=== PATIENT | male | born 1970 | race Caucasian/White ===

== ENCOUNTER 2017-03-30 10:22 | Inpatient (IN) | payer OTHER ==
[~2017-03-30] VITALS: Ht 170.2 cm; Wt 68.5 kg
[~2017-03-30 10:22] MED LIST: AMITRIPTYLINE H25 MG PO; AUGMENTIN875 MG PO; BENTYL10 MG PO; LORTAB 5-325 M1 EACH PO; NAPROSYN500 MG PO; NEXIUM20 MG PO; NOHOMEMEDS; PERCOCET 5/31 TABLET PO; PRILOSEC40 MG PO; TYLENOL325 M1 PO; ZOFRAN4 MG PO
[2017-03-30 11:02] LABS: EOSINOPHIL (%) 0.1 % (0-5); HEMATOCRIT 48.2 % (38.0-50.0); IMMATURE GRANULOCYTE (%) 0.5 % (0.0-0.7); IMMATURE GRANULOCYTE COUNT 0.1 K/uL; INSTRUMENT ABS NEUTROPHIL CT 14.7 K/uL; LYMPHOCYTE COUNT 3.1 K/uL (1.0-2.8); MCH 30.4 PG (29.0-34.0); MCHC 34.2 G/DL (30.0-36.0); MCV 88.9 FL (86-99); MEAN PLAT.VOLUME 10.5 uM^3 (9.0-12.4); MONOCYTE (%) 5.1 % (3-12); NEUTROPHIL (%) 77.7 % (45-76); NEUTROPHIL COUNT 14.7 K/uL (1.8-6.4); PLATELET COUNT 174 K/uL (156-360); RBC DIS.WIDTH-CV 13.1 % (11.8-14.6); RBC DIS.WIDTH-SD 42.9 % (39-53); RED BLOOD COUNT 5.42 M/uL (4.00-5.50); WHITE BLOOD COUNT 18.9 K/uL (4.1-10.2)
[2017-03-30 11:06] LABS: INTER. NORMALIZED RATIO 1.2; PROTHROMBIN TIME 13.5 SEC (10.2-12.9)
[2017-03-30 11:15] LABS: SERUM ETHYL ALCOHOL < 10 mg/dL
[2017-03-30 11:19] LABS: CREATINE KINASE 101 IU/L (1-294); SALICYLATE < 5.0 MG/DL (15-30); TOTAL CK 101 IU/L (1-294)
[2017-03-30 11:24] LABS: TROP-I INTERPRETATION NEGATIVE; TROPONIN-I < 0.01 ng/mL (0.0-0.30)
[2017-03-30 11:26] LABS: CK-MB 1.2 ng/mL (0.0-4.9)
[2017-03-30 12:06] LABS: CHLORIDE 108 mEq/L (99-109); POTASSIUM 3.9 mEq/L (3.7-5.4); SODIUM 142 mEq/L (136-147)
[2017-03-30 12:08] LABS: GLUCOSE 107 mg/dL (70-99)
[2017-03-30 12:09] LABS: ANION GAP 13 MEQ/L (2-14)
[2017-03-30 12:10] LABS: TOTAL BILIRUBIN 0.8 mg/dL (0.0-1.0)
[2017-03-30 12:11] LABS: ALKALINE PHOSPHATASE 63 IU/L (3-129)
[2017-03-30 12:12] LABS: GFR ESTIMATE (CALCULATED) > 59 mL/min/
[2017-03-30 12:13] LABS: UREA NITROGEN (BUN) 13 mg/dL (9-23)
[2017-03-30] MEDS ORDERED: COMBIVENT RESPIM4 GM IH (14:24)
[2017-03-30] MEDS ORDERED: ATARAX,VISTARIL25 MG PO (14:25)
[2017-03-30] MEDS ORDERED: ZESTRIL10 MG PO (14:26)
[2017-03-30] MEDS ORDERED: NEURONTIN300 MG PO (14:26)
[2017-03-30] MEDS ORDERED: TYLENOL EXTRA500 MG PO (14:27)
[2017-03-30] MEDS ORDERED: NICODERM CQ1 EAC2 TD (14:27)
[2017-03-30] MEDS ORDERED: TRAZODONE HCL50 MG PO (14:27)
[2017-03-30] MEDS ORDERED: SEROQUEL100 MG PO (14:27)
[2017-03-30] MEDS ORDERED: PRILOSEC OTC20 MG PO (14:28)
[2017-03-30] MEDS ORDERED: AFRIN,GENASAL D15 ML BOTH NARES (14:28)
[2017-03-30 16:14] VITALS: BP 133/70
[2017-03-30 19:32] VITALS: BP 119/56
[2017-03-30 19:43] LABS: TROP-I INTERPRETATION NEGATIVE; TROPONIN-I < 0.01 ng/mL (0.0-0.30)
[2017-03-30 23:05] VITALS: BP 114/55
[2017-03-31 03:03] VITALS: BP 108/57
[2017-03-31 09:00] VITALS: BP 97/54
[2017-03-31 09:29] LABS: HEMATOCRIT 43.8 % (38.0-50.0); MCH 31.1 PG (29.0-34.0); MCHC 34.2 G/DL (30.0-36.0); MCV 90.7 FL (86-99); MEAN PLAT.VOLUME 10.7 uM^3 (9.0-12.4); PLATELET COUNT 126 K/uL (156-360); RBC DIS.WIDTH-CV 13.1 % (11.8-14.6); RBC DIS.WIDTH-SD 43.5 % (39-53); RED BLOOD COUNT 4.83 M/uL (4.00-5.50); WHITE BLOOD COUNT 11.2 K/uL (4.1-10.2)
[2017-03-31 09:56] LABS: ALKALINE PHOSPHATASE 53 IU/L (3-129); ANION GAP 6 MEQ/L (2-14); CHLORIDE 106 MEQ/L (99-109); GFR ESTIMATE (CALCULATED) > 59 mL/min/; SAMPLE HEMOLYSIS CHECK 0; SAMPLE ICTERIC CHECK 0; SAMPLE LIPEMIA CHECK 0; SODIUM 140 MEQ/L (136-147); UREA NITROGEN (BUN) 16 mg/dL (9-23)
[2017-03-31 09:57] LABS: TROP-I INTERPRETATION NEGATIVE; TROPONIN-I < 0.01 ng/mL (0.0-0.30)
[2017-03-31 10:07] LABS: GLUCOSE 186 mg/dL (70-99)
[2017-03-31 12:00] VITALS: BP 131/71
[2017-03-31 12:18] LABS: GAMMA-GT 23 IU/L (4-73)
[2017-03-31 20:00] VITALS: BP 98/61
[2017-03-31 22:17] LABS: AMPHETAMINES QUANT VALUE 0 NG/ML; BARBITUATES QUANT VALUE 0 NG/ML; BENZODIAZEPINES QUANT VALUE 0 NG/ML; BENZODIAZEPINES, URINE SCREEN Negative (200 ng/mL); OPIATES QUANTITATIVE VALUE 0 NG/ML; PHENCYCLIDINE QUANT VALUE 0 NG/ML
[2017-03-31 23:55] VITALS: BP 109/76
[2017-04-01 04:00] VITALS: BP 100/57
[2017-04-01 08:35] VITALS: BP 117/68
== END 2017-04-01 09:50 | disposition left against medical advice (07) | DRG 918 ==
LOC: EME 10:22 → 4EAST 13:55 → EDOF 13:55 → CANRESERV 14:07 → ENRESERV 14:07 → EDOF 14:07 → ENRESERV 14:22 → 4EAST 15:57
PROVIDERS: Internal Medicine; Physician Assistant; Psychiatry & Neurology Psychiatry
DX: T40.5X1A Poisoning by cocaine, accidental (unintentional), initial encounter (principal); R07.89 Other chest pain; I10 Essential (primary) hypertension; E78.5 Hyperlipidemia, unspecified; R45.851 Suicidal ideations; K21.9 Gastro-esophageal reflux disease without esophagitis; J44.9 Chronic obstructive pulmonary disease, unspecified; F43.10 Post-traumatic stress disorder, unspecified; F60.2 Antisocial personality disorder; F10.20 Alcohol dependence, uncomplicated; F17.200 Nicotine dependence, unspecified, uncomplicated; Z59.0 Homelessness; Z56.0 Unemployment, unspecified; F31.9 Bipolar disorder, unspecified; F14.10 Cocaine abuse, uncomplicated; D72.829 Elevated white blood cell count, unspecified; M51.9 Unspecified thoracic, thoracolumbar and lumbosacral intervertebral disc disorder
CPT/HCPCS: 71020; 80053; 80306 90; 81003; 82550; 82553; 82977; 83880; 84484; 85025; 85027; 85610; 87040; 87086; 93005; 99281; 99285; G0480; J7120

== ENCOUNTER 2017-04-15 14:51 | Emergency (ER) | payer OTHER ==
[~2017-04-15] VITALS: Ht 170.2 cm; Wt 77.5 kg
[~2017-04-15 14:51] MED LIST changes: +AFRIN,GENASAL D15 ML BOTH NARES; +ATARAX,VISTARIL25 MG PO; +COMBIVENT RESPIM4 GM IH; +NEURONTIN300 MG PO; +NICODERM CQ1 EAC2 TD; +PRILOSEC OTC20 MG PO; +SEROQUEL100 MG PO; +TRAZODONE HCL50 MG PO; +TYLENOL EXTRA500 MG PO; +ZESTRIL10 MG PO
[2017-04-15 16:10] LABS: HEMATOCRIT 45.4 % (38.0-50.0); MCH 30.6 PG (29.0-34.0); MCHC 33.9 G/DL (30.0-36.0); MCV 90.3 FL (86-99); MEAN PLAT.VOLUME 10.1 uM^3 (9.0-12.4); RBC DIS.WIDTH-CV 13.1 % (11.8-14.6); RBC DIS.WIDTH-SD 42.6 % (39-53); RED BLOOD COUNT 5.03 M/uL (4.00-5.50); WHITE BLOOD COUNT 14.4 K/uL (4.1-10.2)
[2017-04-15 16:19] LABS: CHLORIDE 109 mEq/L (99-109); POTASSIUM 3.4 mEq/L (3.7-5.4); SODIUM 146 mEq/L (136-147)
[2017-04-15 16:20] LABS: PLATELET COUNT 173 K/uL (156-360)
[2017-04-15 16:21] LABS: GLUCOSE 112 mg/dL (70-99)
[2017-04-15 16:22] LABS: ANION GAP 11 MEQ/L (2-14)
[2017-04-15 16:24] LABS: SERUM ETHYL ALCOHOL 31 mg/dL
[2017-04-15 16:25] LABS: GFR ESTIMATE (CALCULATED) > 59 mL/min/ (58.99-99999)
[2017-04-15 16:26] LABS: UREA NITROGEN (BUN) 13 mg/dL (9-23)
[2017-04-15 16:28] LABS: AMPHETAMINE NEGATIVE (500 ng/mL); BARBITURATES NEGATIVE (200 ng/mL); BENZODIAZEPINES NEGATIVE (150 ng/mL); COCAINE PRESUMPTIVE POSITIVE (150 ng/mL); INTERNAL CONTROLS VALID? YES; METHADONE NEGATIVE (200 ng/mL); METHAMPHETAMINE NEGATIVE (500 ng/mL); OPIATES (MORPHINE) NEGATIVE (100 ng/mL); OXYCODONE NEGATIVE (100 ng/mL); PHENCYCLIDINE NEGATIVE (25 ng/mL); PROPOXYPHENE NEGATIVE (300 ng/mL); THC CANNABINOIDS PRESUMPTIVE POSITIVE (50 ng/mL); TRICYCLIC ANTIDEPRESSANTS NEGATIVE (300 ng/mL)
[2017-04-15 16:29] LABS: ADD MEDTOX COMMENT Y
[2017-04-16 14:34] VITALS: BP 118/68
[2017-04-16 15:04] LABS: ADD MIUA? YES; BILIRUBIN NEGATIVE; BLOOD SMALL; COLOR AMBER ((YELLOW)); GLUCOSE (STRIP) NEGATIVE; KETONES NEGATIVE; LEUKOCYTES NEGATIVE; NITRITE NEGATIVE; PROTEIN (STRIP) 30; SPECIFIC GRAVITY 1.021 (1.000-1.030); UROBILINOGEN 0.2 MG/DL (0.2-1.0)
[2017-04-16 15:43] LABS: BACTERIA NONE SEEN /HPF; CASTS NONE SEEN /LPF; CRYSTALS PRESENT; EPITHELIAL CELLS NONE SEEN /HPF; MUCUS NONE SEEN /LPF; RED BLOOD CELLS NONE SEEN /HPF (0-5); WHITE BLOOD CELLS NONE SEEN /HPF (0-5)
[2017-04-16 15:44] LABS: AMORPHOUS URATES CRYSTALS 3+
== END 2017-04-16 14:37 ==
LOC: EME 14:51
PROVIDERS: Emergency Medicine
DX: F32.9 Major depressive disorder, single episode, unspecified (principal); R45.851 Suicidal ideations; F10.10 Alcohol abuse, uncomplicated; F12.10 Cannabis abuse, uncomplicated; F14.10 Cocaine abuse, uncomplicated; F60.2 Antisocial personality disorder; F17.200 Nicotine dependence, unspecified, uncomplicated
CPT/HCPCS: 80048; 81003; 84999; 85027; 90837; 99281; 99285; G0480

== ENCOUNTER 2017-08-14 01:54 | Emergency (ER) | payer OTHER ==
[~2017-08-14] VITALS: Ht 170.2 cm; Wt 79.5 kg
[2017-08-14] MEDS ORDERED: CLONIDINE PO (02:37)
[2017-08-14 04:01] VITALS: BP 133/90
== END 2017-08-14 04:03 ==
LOC: EME 01:54
DX: S00.03XA Contusion of scalp, initial encounter (principal); F10.129 Alcohol abuse with intoxication, unspecified; Y04.0XXA Assault by unarmed brawl or fight, initial encounter; Z88.5 Allergy status to narcotic agent; Y90.9 Presence of alcohol in blood, level not specified
CPT/HCPCS: 70450; 70486; 99281; 99284

== ENCOUNTER 2017-08-14 16:08 | Inpatient (IN) | payer OTHER ==
[~2017-08-14] VITALS: Ht 170.2 cm; Wt 80.3 kg
[~2017-08-14 16:08] MED LIST changes: +CLONIDINE PO
[2017-08-14 17:04] LABS: ALBUMIN 4.6 g/dL (3.2-4.8); CHLORIDE 109 mEq/L (99-109); POTASSIUM 3.6 mEq/L (3.7-5.4); SODIUM 147 mEq/L (136-147)
[2017-08-14 17:06] LABS: GLUCOSE 117 mg/dL (70-99); TOTAL PROTEIN 7.3 g/dL (6.4-8.3)
[2017-08-14 17:08] LABS: TOTAL BILIRUBIN 0.6 mg/dL (0.0-1.0)
[2017-08-14 17:09] LABS: SERUM ETHYL ALCOHOL < 10 mg/dL
[2017-08-14 17:10] LABS: CREATININE 1.1 mg/dL (0.6-1.3); GFR ESTIMATE (CALCULATED) > 59 mL/min/ (58.99-99999)
[2017-08-14 17:11] LABS: ALKALINE PHOSPHATASE 66 IU/L (3-129)
[2017-08-14 17:12] LABS: AST (GOT) 41 IU/L (2-34); UREA NITROGEN (BUN) 10 mg/dL (9-23)
[2017-08-14 17:13] LABS: SALICYLATE < 5.0 MG/DL (15-30)
[2017-08-14 17:14] LABS: ACETAMINOPHEN (TYLENOL) < 10 mcg/mL (10-30); ALT (GPT) 35 IU/L (3-49)
[2017-08-14 17:15] LABS: LIPASE 15 U/L (1.0-51.0); TROP-I INTERPRETATION NEGATIVE; TROPONIN-I < 0.01 ng/mL (0.0-0.30)
[2017-08-14 19:27] LABS: BASOPHIL (%) 0.2 % (0-1); EOSINOPHIL (%) 0 % (0-5); HEMOGLOBIN 16.1 G/DL (12.5-16.6); IMMATURE GRANULOCYTE (%) 0.4 % (0.0-0.7); LYMPHOCYTE (%) 14.5 % (15-42); LYMPHOCYTE COUNT 2.5 K/uL (1.0-2.8); MCV 88.5 FL (86-99); MONOCYTE (%) 6.6 % (3-12); MONOCYTE COUNT 1.1 K/uL (0-0.8); NEUTROPHIL (%) 78.3 % (45-76); NEUTROPHIL COUNT 13.2 K/uL (1.8-6.4); PLATELET COUNT 177 K/uL (156-360); RBC DIS.WIDTH-CV 13.1 % (11.8-14.6); RBC DIS.WIDTH-SD 42.5 % (39-53); WHITE BLOOD COUNT 16.9 K/uL (4.1-10.2)
[2017-08-15 00:51] LABS: APPEARANCE SL.HAZY ((CLEAR)); BILIRUBIN NEGATIVE; BLOOD NEGATIVE; COLOR YELLOW ((YELLOW)); GLUCOSE (STRIP) NEGATIVE; KETONES 5; LEUKOCYTES NEGATIVE; NITRITE NEGATIVE; PROTEIN (STRIP) 100; SPECIFIC GRAVITY 1.029 (1.000-1.030)
[2017-08-15 00:54] LABS: BACTERIA NONE SEEN /HPF; EPITHELIAL CELLS RARE /HPF; MUCUS 1+ /LPF; RED BLOOD CELLS 0-5 /HPF (0-5); UCUL ADDED? NO; WHITE BLOOD CELLS 0-5 /HPF (0-5)
[2017-08-15 00:58] LABS: AMPHETAMINE NEGATIVE (500 ng/mL); COCAINE NEGATIVE (150 ng/mL); METHAMPHETAMINE NEGATIVE (500 ng/mL); OPIATES (MORPHINE) NEGATIVE (100 ng/mL); PHENCYCLIDINE NEGATIVE (25 ng/mL); THC CANNABINOIDS PRESUMPTIVE POSITIVE (50 ng/mL)
[2017-08-15 00:59] LABS: BARBITURATES NEGATIVE (200 ng/mL); BENZODIAZEPINES NEGATIVE (150 ng/mL); BUPRENORPHINE NEGATIVE (10 ng/mL); METHADONE NEGATIVE (200 ng/mL); OXYCODONE NEGATIVE (100 ng/mL); PROPOXYPHENE NEGATIVE (300 ng/mL); TRICYCLIC ANTIDEPRESSANTS NEGATIVE (300 ng/mL)
[2017-08-15 01:03] VITALS: BP 171/100
[2017-08-15 08:15] VITALS: BP 163/74
[2017-08-15 15:53] VITALS: BP 128/73
[2017-08-16 07:50] VITALS: BP 120/77
== END 2017-08-16 10:02 | disposition left against medical advice (07) | DRG 881 ==
LOC: EME 16:08 → EDOF 22:32 → 1WEST 22:32 → ENRESERV 08-15 00:05 → 1WEST 08-15 00:36
PROVIDERS: Emergency Medicine
DX: F32.9 Major depressive disorder, single episode, unspecified (principal); F10.239 Alcohol dependence with withdrawal, unspecified; R45.851 Suicidal ideations; F60.2 Antisocial personality disorder; F41.9 Anxiety disorder, unspecified; F12.90 Cannabis use, unspecified, uncomplicated; F17.200 Nicotine dependence, unspecified, uncomplicated; K21.9 Gastro-esophageal reflux disease without esophagitis; I25.2 Old myocardial infarction
CPT/HCPCS: 70450; 70486; 71046; 80053; 81003; 83690; 84484; 84999; 85025; 90839; 93005; 99281; 99284; 99285; G0480

== ENCOUNTER 2017-08-26 08:30 | Inpatient (IN) | payer OTHER ==
[~2017-08-26] VITALS: Ht 170.2 cm; Wt 77.2 kg
[2017-08-26 09:48] LABS: HEMATOCRIT 43.2 % (38.0-50.0); HEMOGLOBIN 15.3 G/DL (12.5-16.6); MCH 31.2 PG (29.0-34.0); MCHC 35.4 G/DL (30.0-36.0); MCV 88.2 FL (86-99); PLATELET COUNT 132 K/uL (156-360); RBC DIS.WIDTH-CV 12.8 % (11.8-14.6); RBC DIS.WIDTH-SD 41.1 % (39-53); WHITE BLOOD COUNT 10.1 K/uL (4.1-10.2)
[2017-08-26 09:51] LABS: AMPHETAMINE NEGATIVE (500 ng/mL); BARBITURATES NEGATIVE (200 ng/mL); BENZODIAZEPINES PRESUMPTIVE POSITIVE (150 ng/mL); BUPRENORPHINE NEGATIVE (10 ng/mL); COCAINE NEGATIVE (150 ng/mL); METHADONE NEGATIVE (200 ng/mL); METHAMPHETAMINE NEGATIVE (500 ng/mL); OPIATES (MORPHINE) NEGATIVE (100 ng/mL); OXYCODONE NEGATIVE (100 ng/mL); PHENCYCLIDINE NEGATIVE (25 ng/mL); PROPOXYPHENE NEGATIVE (300 ng/mL); THC CANNABINOIDS PRESUMPTIVE POSITIVE (50 ng/mL); TRICYCLIC ANTIDEPRESSANTS NEGATIVE (300 ng/mL)
[2017-08-26 09:56] LABS: CHLORIDE 106 mEq/L (99-109); POTASSIUM 3.7 mEq/L (3.7-5.4); SODIUM 141 mEq/L (136-147)
[2017-08-26 09:58] LABS: GLUCOSE 120 mg/dL (70-99)
[2017-08-26 10:01] LABS: CREATININE 0.8 mg/dL (0.6-1.3); GFR ESTIMATE (CALCULATED) > 59 mL/min/ (58.99-99999); SERUM ETHYL ALCOHOL < 10 mg/dL
[2017-08-26 10:02] LABS: UREA NITROGEN (BUN) 14 mg/dL (9-23)
[2017-08-26 10:29] LABS: BENZODIAZEPINES, URINE SCREEN Negative (200 ng/mL)
[2017-08-26] MEDS ORDERED: SEROQUEL100 MG PO (15:45)
[2017-08-26 15:55] VITALS: BP 142/79
[2017-08-26 16:05] VITALS: BP 142/79
[2017-08-26] MEDS ORDERED: MOTRIN400 MG PO (16:26)
[2017-08-27 07:34] VITALS: BP 118/65
[2017-08-27 16:02] VITALS: BP 127/56
[2017-08-28 08:10] VITALS: BP 111/58
[2017-08-28] MEDS ORDERED: EFFEXOR XR37.5 MG PO (11:42)
== END 2017-08-28 11:55 | disposition left against medical advice (07) | DRG 881 ==
LOC: EME 08:30 → 1WEST 12:10 → EDOF 12:10 → ENRESERV 13:39 → 1WEST 15:53
PROVIDERS: Nurse Practitioner Family
DX: F32.9 Major depressive disorder, single episode, unspecified (principal); R45.851 Suicidal ideations; F10.20 Alcohol dependence, uncomplicated; F12.10 Cannabis abuse, uncomplicated; F60.2 Antisocial personality disorder; F17.200 Nicotine dependence, unspecified, uncomplicated; Z59.0 Homelessness; Z76.5 Malingerer [conscious simulation]
CPT/HCPCS: 80048; 84999; 85027; 90839; 94640; 94640 76; 99202; 99281; 99285; G0480; Q0177